=== PATIENT | male | born 1950 | race Caucasian/White ===

== ENCOUNTER 2021-12-03 15:12 | Emergency (ER) | payer OTHER ==
[2021-12-03 15:57] LABS: #Basophils 0.1 thou/uL (0.0-0.2); #Lymphocytes 0.2 thou/uL (1.20-3.40); #Monocytes 0.3 thou/uL (0.11-0.59); #Neutrophils 8.9 thou/uL (1.40-6.50); %Basophils 0.9 % (0.0-1.0); %Eosinophils 0.5 % (0.0-10.0); %Lymphocytes 2.1 % (21.0-51.0); %Monocytes 3.6 % (0.0-10.0); %Neutrophils 92.9 % (42.0-75.0); Mean Corpuscular HGB CONC 33.3 g/dL (32.0-36.0); Mean Corpuscular Hemoglobin 32.8 pg (27.0-31.0); Mean Corpuscular Volume 98.6 fL (78.0-98.0); Mean Platelet Volume 6.5 fL (7.4-10.4); Platelet Count 189 thou/uL (130-400); RBC Distribution Width 12.8 % (11.5-14.5); Red Blood Cell (RBC) Count 5.17 mill/uL (4.70-6.10); White Blood Cell (WBC) Count 9.6 thou/uL (4.8-10.8)
[2021-12-03] MEDS ORDERED: methylPREDNISolone Sod Succ/PF 125 MG/2 ML VIAL ONE (15:57)
[2021-12-03 16:14] LABS: ALT (SGPT) 21 U/L (8-55); AST (SGOT) 19 U/L (5-34); Albumin 4.6 g/dL (3.4-4.8); Alkaline Phosphatase 91 U/L (40-110); Anion Gap 17 mmol/L (10-20); BUN (Urea Nitrogen) 22 mg/dL (8.4-25.7); Bilirubin, Total 1.1 mg/dL (0.2-1.2); Calc. Creatinine Clearance 0 mL/min (70-130); Calcium 9.7 mg/dL (7.8-10.44); Carbon Dioxide 32 mmol/L (23-31); Chloride 101 mmol/L (98-107); Globulin 3.4 g/dL (2.4-3.5); Glucose 103 mg/dL (80-115); Lipase 18 U/L (8-78); Potassium 3.9 mmol/L (3.5-5.1); Sodium 146 mmol/L (136-145)
== END 2021-12-03 20:12 | disposition home or self-care (01) ==
LOC: BURERS 15:12
DX: J44.1 Chronic obstructive pulmonary disease with (acute) exacerbation (principal); R11.2 Nausea with vomiting, unspecified; R19.7 Diarrhea, unspecified; I10 Essential (primary) hypertension; Z79.899 Other long term (current) drug therapy
CPT/HCPCS: 36415; 71045; 80053; 83605; 83690; 83880; 84484; 85025; 93005; 96374; J2930; J7620

== ENCOUNTER 2021-12-29 21:41 | Emergency (ER) | payer OTHER ==
[2021-12-29] MEDS ORDERED: Benzonatate 100 MG CAP ONE (23:22)
[2021-12-29 23:54] LABS: #Basophils 0.1 thou/uL (0.0-0.2); #Eosinphils 0.1 thou/uL (0.0-0.7); #Lymphocytes 0.4 thou/uL (1.20-3.40); #Monocytes 0.5 thou/uL (0.11-0.59); #Neutrophils 4.6 thou/uL (1.40-6.50); %Basophils 1.4 % (0.0-1.0); %Eosinophils 1.8 % (0.0-10.0); %Lymphocytes 7.6 % (21.0-51.0); %Monocytes 8.5 % (0.0-10.0); %Neutrophils 80.7 % (42.0-75.0); Mean Corpuscular Hemoglobin 32.9 pg (27.0-31.0); Mean Corpuscular Volume 96.8 fL (78.0-98.0); Mean Platelet Volume 6.3 fL (7.4-10.4); Platelet Count 187 thou/uL (130-400); Red Blood Cell (RBC) Count 4.26 mill/uL (4.70-6.10); White Blood Cell (WBC) Count 5.6 thou/uL (4.8-10.8)
[2021-12-29 23:56] LABS: ALT (SGPT) 20 U/L (8-55); AST (SGOT) 15 U/L (5-34); Albumin 3.8 g/dL (3.4-4.8); Alkaline Phosphatase 81 U/L (40-110); Anion Gap 17 mmol/L (10-20); BUN (Urea Nitrogen) 30 mg/dL (8.4-25.7); Bilirubin, Total 0.8 mg/dL (0.2-1.2); Calc. Creatinine Clearance 0 mL/min (70-130); Calcium 9.4 mg/dL (7.8-10.44); Carbon Dioxide 30 mmol/L (23-31); Chloride 101 mmol/L (98-107); Globulin 2.9 g/dL (2.4-3.5); Glucose 100 mg/dL (80-115); Potassium 3.7 mmol/L (3.5-5.1); Protein, Total 6.7 g/dL (5.8-8.1); Sodium 144 mmol/L (136-145)
[2021-12-30] MEDS ORDERED: Azithromycin 250 MG TAB ONE (00:16)
[2021-12-30] MEDS ORDERED: predniSONE 20 MG TAB ONE (00:16)
== END 2021-12-30 00:22 | disposition home or self-care (01) ==
LOC: BURERS 21:41
DX: J44.1 Chronic obstructive pulmonary disease with (acute) exacerbation (principal); I10 Essential (primary) hypertension; Z85.038 Personal history of other malignant neoplasm of large intestine
CPT/HCPCS: 36415; 71046; 80053; 83880; 84484; 85025; 93005; J7512; J7620

== ENCOUNTER 2022-01-11 04:00 | Emergency (ER) | payer OTHER ==
[2022-01-11 04:37] LABS: #Basophils 0.1 thou/uL (0.0-0.2); #Eosinphils 0.2 thou/uL (0.0-0.7); #Lymphocytes 0.6 thou/uL (1.20-3.40); #Monocytes 0.5 thou/uL (0.11-0.59); #Neutrophils 4.9 thou/uL (1.40-6.50); %Basophils 0.8 % (0.0-1.0); %Eosinophils 3.2 % (0.0-10.0); %Lymphocytes 9.5 % (21.0-51.0); %Monocytes 8.4 % (0.0-10.0); %Neutrophils 78.2 % (42.0-75.0); Hemoglobin 14.2 g/dL (14.0-18.0); Mean Corpuscular HGB CONC 34.4 g/dL (32.0-36.0); Mean Corpuscular Hemoglobin 33.2 pg (27.0-31.0); Mean Corpuscular Volume 96.6 fL (78.0-98.0); Mean Platelet Volume 5.8 fL (7.4-10.4); Platelet Count 177 thou/uL (130-400); RBC Distribution Width 12.9 % (11.5-14.5); Red Blood Cell (RBC) Count 4.28 mill/uL (4.70-6.10); White Blood Cell (WBC) Count 6.3 thou/uL (4.8-10.8)
[2022-01-11 04:55] LABS: ALT (SGPT) 26 U/L (8-55); AST (SGOT) 13 U/L (5-34); Acetaminophen Less than 10.0 mcg/mL (10.0-30.0); Albumin 3.5 g/dL (3.4-4.8); Alcohol Less than 10 mg/dL (Less than 10); Alkaline Phosphatase 86 U/L (40-110); Anion Gap 14 mmol/L (10-20); BUN (Urea Nitrogen) 27 mg/dL (8.4-25.7); Bilirubin, Total 0.3 mg/dL (0.2-1.2); Calc. Creatinine Clearance 0 mL/min (70-130); Calcium 8.7 mg/dL (7.8-10.44); Carbon Dioxide 32 mmol/L (23-31); Chloride 106 mmol/L (98-107); Globulin 2.8 g/dL (2.4-3.5); Glucose 163 mg/dL (80-115); Potassium 3.9 mmol/L (3.5-5.1); Protein, Total 6.3 g/dL (5.8-8.1); Salicylate Less than 8.0 mg/dL (15.0-30.0); Sodium 148 mmol/L (136-145)
[2022-01-11 07:17] LABS: Lactic Acid 1.7 mmol/L (0.5-2.2)
== END 2022-01-11 07:00 | disposition home or self-care (01) ==
LOC: BURERS 04:00
DX: J44.1 Chronic obstructive pulmonary disease with (acute) exacerbation (principal); I10 Essential (primary) hypertension; Z79.51 Long term (current) use of inhaled steroids; Z79.899 Other long term (current) drug therapy
CPT/HCPCS: 36415; 71045; 80053; 80307; 83605; 83880; 84484; 85025; 93005; 94760

== ENCOUNTER 2022-01-18 05:01 | Inpatient (IN) | payer OTHER ==
[2022-01-18] MEDS ORDERED: methylPREDNISolone Sod Succ/PF 125 MG/2 ML VIAL ONE (05:39)
[2022-01-18 05:41] LABS: #Basophils 0.1 thou/uL (0.0-0.2); #Eosinphils 0.2 thou/uL (0.0-0.7); #Lymphocytes 0.4 thou/uL (1.20-3.40); #Monocytes 0.5 thou/uL (0.11-0.59); %Basophils 0.8 % (0.0-1.0); %Lymphocytes 5.6 % (21.0-51.0); %Monocytes 6.9 % (0.0-10.0); %Neutrophils 83.8 % (42.0-75.0); Hemoglobin 14.4 g/dL (14.0-18.0); Mean Corpuscular HGB CONC 33.2 g/dL (32.0-36.0); Mean Corpuscular Hemoglobin 32.8 pg (27.0-31.0); Mean Corpuscular Volume 98.7 fL (78.0-98.0); Mean Platelet Volume 7.1 fL (7.4-10.4); Platelet Count 157 thou/uL (130-400); RBC Distribution Width 13.5 % (11.5-14.5); White Blood Cell (WBC) Count 7.1 thou/uL (4.8-10.8)
[2022-01-18] MEDS ORDERED: Sodium Chloride 0.9% 100 ML ONE (05:50)
[2022-01-18] MEDS ORDERED: cefTRIAXone\\ROCEPHIN 2 GM VIAL ONE (05:50)
[2022-01-18 06:00] LABS: ALT (SGPT) 22 U/L (8-55); AST (SGOT) 15 U/L (5-34); Albumin 3.7 g/dL (3.4-4.8); Alkaline Phosphatase 72 U/L (40-110); Anion Gap 15 mmol/L (10-20); BUN (Urea Nitrogen) 20 mg/dL (8.4-25.7); Bilirubin, Total 0.4 mg/dL (0.2-1.2); Calc. Creatinine Clearance 0 mL/min (70-130); Calcium 8.9 mg/dL (7.8-10.44); Carbon Dioxide 28 mmol/L (23-31); Chloride 106 mmol/L (98-107); Globulin 2.8 g/dL (2.4-3.5); Glucose 108 mg/dL (80-115); Potassium 3.9 mmol/L (3.5-5.1); Protein, Total 6.5 g/dL (5.8-8.1); Sodium 145 mmol/L (136-145)
[2022-01-18 06:49] LABS: SARS-CoV-2 NAA Rapid Test Not Detected (NotDetected)
[2022-01-18] MEDS ORDERED: Azithromycin 250 MG TAB ONE (07:10)
[2022-01-18] MEDS ORDERED: Benzonatate 100 MG CAP PO PRN (08:04)
[2022-01-18] MEDS ORDERED: Ondansetron PF 4 MG/2 ML Vial IVP PRN (08:27)
[2022-01-18] MEDS ORDERED: Ondansetron ODT 4 MG TAB PO PRN (08:28)
[2022-01-18] MEDS ORDERED: Acetaminophen 325 MG TAB PO PRN (08:28)
[2022-01-18] MEDS ORDERED: methylPREDNISolone 4 mg Tablet PO SCH (09:00)
[2022-01-18] MEDS ORDERED: Non-Formulary Item 1 EACH (Losartan Potassium [Cozaar] 100 MG Tablet) PO SCH (09:00)
[2022-01-18 11:02] VITALS: BMI 19.8
[2022-01-18] MEDS: Albuterol Sulfate 2.5 mg/3 ml Neb NEB PRN ×2 (12:26→20:11)
[2022-01-18] MEDS: Dextrose 5 %-0.45 % NaCl 1,000 ML IV SCH ×3 (12:26→20:19)
[2022-01-18] MEDS: Losartan 25 MG TAB PO SCH (12:28)
[2022-01-18] MEDS: Amlodipine 5 MG TAB PO SCH (12:29)
[2022-01-18] MEDS: Ferrous Sulfate 325 MG TAB PO SCH ×2 (12:30→20:12)
[2022-01-18] MEDS: methylPREDNISolone Sod Succ 40 MG VIAL IVP SCH ×2 (14:42→22:11)
[2022-01-18] MEDS: Mometasone/Formoterol 200/5 60 PUFF INH SCH (18:52)
[2022-01-18] MEDS: Enoxaparin Sodium 40 MG/0.4 ML SYRINGE SC SCH (20:12)
[2022-01-18] MEDS: Mirtazapine 15 MG TAB PO SCH (20:13)
[2022-01-18] MEDS ORDERED: MIRTAZAPINE 15 MG PO SCH (21:00)
[2022-01-19] MEDS: Albuterol Sulfate 2.5 mg/3 ml Neb NEB PRN (03:29)
[2022-01-19] MEDS: Dextrose 5 %-0.45 % NaCl 1,000 ML IV SCH (04:49)
[2022-01-19] MEDS ORDERED: cefTRIAXone\\ROCEPHIN 1 GM VIAL ONE (05:40)
[2022-01-19] MEDS ORDERED: cefTRIAXone\\ROCEPHIN 1 GM in Sodium Chloride 0.9% 100 ML IVPB SCH (06:00)
[2022-01-19] MEDS: methylPREDNISolone Sod Succ 40 MG VIAL IVP SCH ×3 (06:04→21:28)
[2022-01-19] MEDS: Losartan 25 MG TAB PO SCH (08:49)
[2022-01-19] MEDS: Ferrous Sulfate 325 MG TAB PO SCH ×2 (08:49→21:29)
[2022-01-19] MEDS: Amlodipine 5 MG TAB PO SCH (08:49)
[2022-01-19] MEDS: Mometasone/Formoterol 200/5 60 PUFF INH SCH ×2 (08:54→18:16)
[2022-01-19] MEDS ORDERED: Azithromycin 250 MG TAB PO SCH (09:00)
[2022-01-19] MEDS: Mirtazapine 15 MG TAB PO SCH (21:29)
[2022-01-19] MEDS: Enoxaparin Sodium 40 MG/0.4 ML SYRINGE SC SCH (21:29)
[2022-01-20 06:27] VITALS: TEMP 98.2
[2022-01-20] MEDS: methylPREDNISolone Sod Succ 40 MG VIAL IVP SCH ×2 (06:33→15:13)
[2022-01-20] MEDS: Mometasone/Formoterol 200/5 60 PUFF INH SCH (06:34)
[2022-01-20] MEDS ORDERED: Losartan Potassium 50 MG TAB PO SCH (09:00)
[2022-01-20] MEDS: Ferrous Sulfate 325 MG TAB PO SCH (09:32)
[2022-01-20] MEDS: Amlodipine 5 MG TAB PO SCH (09:32)
[2022-01-20 09:39] VITALS: BP 177/84
[2022-01-20] MEDS ORDERED: Losartan 25 MG TAB PO SCH (09:45)
[2022-01-21] MEDS ORDERED: Losartan 25 MG TAB PO SCH (09:00)
== END 2022-01-20 14:45 | disposition home or self-care (01) | DRG 192 ==
LOC: BURERS 05:01 → BURMED 07:22
PROVIDERS: ADMIT Family Medicine; ATTEND Family Medicine
DX: J44.1 Chronic obstructive pulmonary disease with (acute) exacerbation (principal); R53.1 Weakness; R53.81 Other malaise; I10 Essential (primary) hypertension; Z20.822 Contact with and (suspected) exposure to COVID-19; F41.0 Panic disorder [episodic paroxysmal anxiety]; Z99.81 Dependence on supplemental oxygen; Z85.038 Personal history of other malignant neoplasm of large intestine; Z92.3 Personal history of irradiation; Z90.49 Acquired absence of other specified parts of digestive tract; Z79.899 Other long term (current) drug therapy; Z92.21 Personal history of antineoplastic chemotherapy; Z63.8 Other specified problems related to primary support group
CPT/HCPCS: 36415; 71045; 80053; 83880; 84484; 85025; 93005; 94640; 94760; 96374; 96375; J0696; J2920; J2930; J3490; J7042; J7611; J7620

== ENCOUNTER 2022-02-10 14:34 | Emergency (ER) | payer OTHER ==
[2022-02-10] MEDS ORDERED: Albuterol Sulfate 1.25 MG/3 ML NEB ONE (14:48)
[2022-02-10] MEDS ORDERED: predniSONE 20 MG TAB ONE (15:02)
== END 2022-02-10 16:28 | disposition home or self-care (01) ==
LOC: BURERS 14:34
DX: J44.1 Chronic obstructive pulmonary disease with (acute) exacerbation (principal); I10 Essential (primary) hypertension; Z85.038 Personal history of other malignant neoplasm of large intestine; Z79.899 Other long term (current) drug therapy
CPT/HCPCS: 94640; J7512; J7620

== ENCOUNTER 2022-03-01 01:05 | Emergency (ER) | payer OTHER ==
[2022-03-01] MEDS ORDERED: traMADol HCl 50 MG TAB ONE (02:24)
== END 2022-03-01 02:57 | disposition home or self-care (01) ==
LOC: BURERS 01:05
DX: S16.1XXA Strain of muscle, fascia and tendon at neck level, initial encounter (principal); I10 Essential (primary) hypertension; W19.XXXA Unspecified fall, initial encounter
CPT/HCPCS: 70450; 72125

== ENCOUNTER 2022-03-18 02:58 | Emergency (ER) | payer OTHER | END 2022-03-18 05:23 | disposition home or self-care (01) | LOC: BURERS 02:58 | DX: K56.41 Fecal impaction (principal); I10 Essential (primary) hypertension; J44.9 Chronic obstructive pulmonary disease, unspecified; E78.5 Hyperlipidemia, unspecified | CPT/HCPCS: 99283 ==

== ENCOUNTER 2022-04-01 06:41 | Emergency (ER) | payer OTHER ==
[2022-04-01] MEDS ORDERED: Acetaminophen/Codeine 30-300mg Tablet ONE (07:30)
[2022-04-01] MEDS ORDERED: Bacitracin 1 PK ONE (07:36)
== END 2022-04-01 08:04 | disposition home or self-care (01) ==
LOC: BURERS 06:41
DX: S51.811A Laceration without foreign body of right forearm, initial encounter (principal); S81.812A Laceration without foreign body, left lower leg, initial encounter; S70.01XA Contusion of right hip, initial encounter; I10 Essential (primary) hypertension; J44.9 Chronic obstructive pulmonary disease, unspecified; E78.5 Hyperlipidemia, unspecified; Z87.891 Personal history of nicotine dependence; Z79.899 Other long term (current) drug therapy; W01.0XXA Fall on same level from slipping, tripping and stumbling without subsequent striking against object, initial encounter

== ENCOUNTER 2022-08-05 20:48 | Emergency (ER) | payer OTHER ==
[~2022-08-05 20:48] MED LIST: Iopamidol 370 76% 100 ML VIAL ONE
[2022-08-05] MEDS ORDERED: Lorazepam 2 MG/ML VIAL ONE (21:07)
[2022-08-05] MEDS ORDERED: methylPREDNISolone Sod Succ/PF 125 MG/2 ML VIAL ONE (21:07)
[2022-08-05 21:24] LABS: #Basophils 0.1 thou/uL (0.0-0.2); #Eosinphils 0.1 thou/uL (0.0-0.7); #Lymphocytes 0.5 thou/uL (1.20-3.40); #Monocytes 0.6 thou/uL (0.11-0.59); #Neutrophils 6.3 thou/uL (1.40-6.50); %Eosinophils 1.2 % (0.0-10.0); %Lymphocytes 6.3 % (21.0-51.0); %Monocytes 7.5 % (0.0-10.0); Hemoglobin 12.9 g/dL (14.0-18.0); Mean Corpuscular HGB CONC 32.9 g/dL (32.0-36.0); Mean Corpuscular Hemoglobin 31.5 pg (27.0-31.0); Mean Corpuscular Volume 95.5 fl (78.0-98.0); Mean Platelet Volume 6.3 fL (7.4-10.4); Platelet Count 220 10x3/uL (130-400); RBC Distribution Width 13.9 % (11.5-14.5); Red Blood Cell (RBC) Count 4.09 mill/uL (4.70-6.10); White Blood Cell (WBC) Count 7.5 10x3/uL (4.8-10.8)
[2022-08-05 21:36] LABS: Base Excess-Venous 4.3 mmol/L (-2.0 to 3.0); Bicarbonate (HCO3v) 32.1 mmol/L (22.0-28.0); CO2 Tension (PvCO2) 60.5 mmHg (42.0-51.0); Calcium, Ionized 1.22 mmol/L (1.15-1.33); Chloride 105 mmol/L (98-107); Hemoglobin - Calc 14.2 g/dL (14.0-18.0); Potassium 3.9 mmol/L (3.5-5.1); Sodium 147 mmol/L (138-145); T. Carbon Dioxide 33.9 mmol/L (22.0-28.0); vO2 Saturation-calc 58.1 % (60.0-85.0)
[2022-08-05 21:46] LABS: ALT (SGPT) 29 U/L (8-55); AST (SGOT) 18 U/L (5-34); Albumin 4.4 g/dL (3.4-4.8); Alkaline Phosphatase 81 U/L (40-110); Anion Gap 16 mmol/L (10-20); BUN (Urea Nitrogen) 22 mg/dL (8.4-25.7); Bilirubin, Total 0.5 mg/dL (0.2-1.2); Calc. Creatinine Clearance 0 mL/min (70-130); Calcium 9.8 mg/dL (7.8-10.44); Carbon Dioxide 30 mmol/L (23-31); Chloride 103 mmol/L (98-107); Estimated GFR 92; Globulin 3.1 g/dL (2.4-3.5); Glucose 143 mg/dL (83-110); Potassium 3.9 mmol/L (3.5-5.1); Protein, Total 7.5 g/dL (5.8-8.1); Sodium 145 mmol/L (136-145)
[2022-08-05 23:04] LABS: Bilirubin Negative (Negative); Blood, Urine Trace (Negative); Clarity Clear (Clear); Glucose, Urine (Dipstick) Negative (Negative); Ketone, Urine Negative (Negative); Leukocyte Negative (Negative); Nitrite Negative (Negative); Protein, Urine (Dipstick) Negative (Neg-Trace); Urobilinogen 0.2 mg/dL (Less than 2); pH, Urine 6.5 (5.0-9.0)
[2022-08-05 23:05] LABS: Bacteria/HPF Rare-Few HPF (None Seen); Mucous/LPF Rare LPF (<2+); RBC/HPF 0-3 HPF (0-3); Squamous Epithelial None Seen HPF (0-3); WBC/HPF None Seen HPF (0-3)
[2022-08-05 23:12] LABS: Cocaine Metabolite Screen Detected (NotDetected); Phencyclidine (PCP) Not Detected (NotDetected); THC/Cannabinoid Screen Not Detected (NotDetected)
[2022-08-05 23:13] LABS: Amphetamine Not Detected (NotDetected); Barbiturates Screen Not Detected (NotDetected); Benzodiazepine Screen Not Detected (NotDetected); Medtox Control Line Valid? VALID (VALID); Methadone Not Detected (NotDetected); Methamphetamine Not Detected (NotDetected); Opiate Screen Not Detected (NotDetected); Oxycodone Screen Not Detected (NotDetected); Tricyclic Screen Not Detected (NotDetected)
[2022-08-06 00:10] LABS: Base Excess-Venous 3.1 mmol/L (-2.0 to 3.0); Bicarbonate (HCO3v) 30.2 mmol/L (22.0-28.0); CO2 Tension (PvCO2) 56.1 mmHg (42.0-51.0); Calcium, Ionized 1.16 mmol/L (1.15-1.33); Chloride 106 mmol/L (98-107); Hemoglobin - Calc 12.6 g/dL (14.0-18.0); Sodium 144 mmol/L (138-145); T. Carbon Dioxide 31.9 mmol/L (22.0-28.0); vO2 Saturation-calc 73.3 % (60.0-85.0)
[2022-08-06] MEDS ORDERED: Azithromycin 250 MG TAB ONE (00:52)
== END 2022-08-06 00:56 | disposition home or self-care (01) ==
LOC: BURERS 20:48
DX: J44.1 Chronic obstructive pulmonary disease with (acute) exacerbation (principal); I10 Essential (primary) hypertension; E78.5 Hyperlipidemia, unspecified; Z87.891 Personal history of nicotine dependence
CPT/HCPCS: 36415; 71045; 71275; 80053; 80306; 81003; 81015; 82330; 82803; 83605; 83880; 84484; 85014; 85025; 85379; 93005; 96374; 96375; J2060; J2930; J7620; Q9967

== ENCOUNTER 2022-08-27 16:00 | Emergency (ER) | payer OTHER ==
[2022-08-27 16:37] LABS: Bilirubin Negative (Negative); Blood, Urine Negative (Negative); Clarity Clear (Clear); Glucose, Urine (Dipstick) Negative (Negative); Ketone, Urine Negative (Negative); Leukocyte Negative (Negative); Nitrite Negative (Negative); Protein, Urine (Dipstick) Negative (Neg-Trace); Specific Gravity, Urine 1.025 (1.005-1.030); Urobilinogen 0.2 mg/dL (Less than 2)
[2022-08-27 16:37] LABS: #Basophils 0.1 thou/uL (0.0-0.2); #Eosinphils 0.1 thou/uL (0.0-0.7); #Lymphocytes 0.4 thou/uL (1.20-3.40); #Monocytes 0.6 thou/uL (0.11-0.59); #Neutrophils 6.2 thou/uL (1.40-6.50); %Basophils 1.1 % (0.0-1.0); %Eosinophils 1.3 % (0.0-10.0); %Lymphocytes 4.8 % (21.0-51.0); %Neutrophils 84.8 % (42.0-75.0); Hemoglobin 11.7 g/dL (14.0-18.0); Mean Corpuscular Hemoglobin 32.1 pg (27.0-31.0); Mean Corpuscular Volume 94.3 fl (78.0-98.0); Mean Platelet Volume 5.8 fL (7.4-10.4); Platelet Count 203 10x3/uL (130-400); RBC Distribution Width 14.2 % (11.5-14.5); Red Blood Cell (RBC) Count 3.66 mill/uL (4.70-6.10); White Blood Cell (WBC) Count 7.3 10x3/uL (4.8-10.8)
[2022-08-27 16:54] LABS: ALT (SGPT) 19 U/L (8-55); AST (SGOT) 16 U/L (5-34); Albumin 4.1 g/dL (3.4-4.8); Alkaline Phosphatase 71 U/L (40-110); Anion Gap 15 mmol/L (10-20); BUN (Urea Nitrogen) 18 mg/dL (8.4-25.7); Bilirubin, Total 0.7 mg/dL (0.2-1.2); Calc. Creatinine Clearance 0 mL/min (70-130); Calcium 9.1 mg/dL (7.8-10.44); Carbon Dioxide 25 mmol/L (23-31); Chloride 107 mmol/L (98-107); Estimated GFR 80; Globulin 2.6 g/dL (2.4-3.5); Glucose 114 mg/dL (83-110); Potassium 3.3 mmol/L (3.5-5.1); Protein, Total 6.7 g/dL (5.8-8.1); Sodium 144 mmol/L (136-145)
[2022-08-27] MEDS ORDERED: Morphine 2 MG/ML VIAL ONE (17:46)
[2022-08-27] MEDS ORDERED: Ketorolac Tromethamine 30 MG/ML VIAL ONE (17:57)
== END 2022-08-27 21:39 | disposition home or self-care (01) ==
LOC: BURERS 16:00
DX: R07.89 Other chest pain (principal); I10 Essential (primary) hypertension; J44.9 Chronic obstructive pulmonary disease, unspecified; E78.5 Hyperlipidemia, unspecified; Z87.891 Personal history of nicotine dependence
CPT/HCPCS: 36415; 71250; 74177; 80053; 81003; 83605; 83690; 84484; 85025; 93005; 96374; 96375; J1885; J2270; J7620

== ENCOUNTER 2022-08-29 20:33 | Emergency (ER) | payer OTHER, MEDICARE ==
[2022-08-29] MEDS ORDERED: Doxycycline 100 MG CAP ONE (20:49)
== END 2022-08-29 23:30 | disposition home or self-care (01) ==
LOC: BURERS 20:33
DX: J44.1 Chronic obstructive pulmonary disease with (acute) exacerbation (principal); I10 Essential (primary) hypertension; E78.5 Hyperlipidemia, unspecified; Z87.891 Personal history of nicotine dependence
CPT/HCPCS: 71250; 74177

== ENCOUNTER 2022-09-20 18:47 | Emergency (ER) | payer OTHER ==
[2022-09-20] MEDS ORDERED: methylPREDNISolone Sod Succ/PF 125 MG/2 ML VIAL ONE (19:07)
[2022-09-20] MEDS ORDERED: Ipratropium/Albuterol 3 ML NEB ONE (19:07)
== END 2022-09-20 20:31 | disposition home or self-care (01) ==
LOC: BURERS 18:47
DX: J44.1 Chronic obstructive pulmonary disease with (acute) exacerbation (principal); I10 Essential (primary) hypertension; E78.5 Hyperlipidemia, unspecified
CPT/HCPCS: 96374; J2930; J7620

== ENCOUNTER 2022-10-07 00:12 | Emergency (ER) | payer OTHER ==
[2022-10-07 00:37] LABS: #Basophils 0.1 thou/uL (0.0-0.2); #Eosinphils 0.1 thou/uL (0.0-0.7); #Lymphocytes 0.5 thou/uL (1.20-3.40); #Monocytes 0.6 thou/uL (0.11-0.59); #Neutrophils 5.5 thou/uL (1.40-6.50); %Basophils 1.9 % (0.0-1.0); %Lymphocytes 6.9 % (21.0-51.0); %Monocytes 8.7 % (0.0-10.0); %Neutrophils 80.5 % (42.0-75.0); Hemoglobin 13.4 g/dL (14.0-18.0); Mean Corpuscular HGB CONC 33.7 g/dL (32.0-36.0); Mean Corpuscular Hemoglobin 32.1 pg (27.0-31.0); Mean Corpuscular Volume 95.2 fl (78.0-98.0); Mean Platelet Volume 6.7 fL (7.4-10.4); Platelet Count 204 10x3/uL (130-400); RBC Distribution Width 13.8 % (11.5-14.5); Red Blood Cell (RBC) Count 4.17 mill/uL (4.70-6.10); White Blood Cell (WBC) Count 6.8 10x3/uL (4.8-10.8)
[2022-10-07 00:52] LABS: ALT (SGPT) 16 U/L (8-55); AST (SGOT) 13 U/L (5-34); Albumin 3.9 g/dL (3.4-4.8); Alkaline Phosphatase 95 U/L (40-110); Anion Gap 17 mmol/L (10-20); BUN (Urea Nitrogen) 14 mg/dL (8.4-25.7); Bilirubin, Total 0.3 mg/dL (0.2-1.2); Calc. Creatinine Clearance 0 mL/min (70-130); Calcium 8.9 mg/dL (7.8-10.44); Carbon Dioxide 25 mmol/L (23-31); Chloride 107 mmol/L (98-107); Estimated GFR 74; Globulin 2.3 g/dL (2.4-3.5); Glucose 157 mg/dL (83-110); Potassium 3.2 mmol/L (3.5-5.1); Protein, Total 6.2 g/dL (5.8-8.1); Sodium 146 mmol/L (136-145)
== END 2022-10-07 00:56 | disposition home or self-care (01) ==
LOC: BURERS 00:12
DX: J44.9 Chronic obstructive pulmonary disease, unspecified (principal); F41.9 Anxiety disorder, unspecified; I10 Essential (primary) hypertension; E78.00 Pure hypercholesterolemia, unspecified; Z85.038 Personal history of other malignant neoplasm of large intestine; Z87.891 Personal history of nicotine dependence
CPT/HCPCS: 71045; 80053; 85025

== ENCOUNTER 2022-10-17 11:42 | Inpatient (IN) | payer MEDICARE ==
[2022-10-17] MEDS ORDERED: traMADol HCl 50 MG TAB PO PRN (17:40)
[2022-10-17] MEDS ORDERED: IPRATROPIUM INH PRN (17:40)
[2022-10-17] MEDS ORDERED: Albuterol 200 PUFF (6.7GM INHALER) INH PRN (17:40)
[2022-10-17] MEDS ORDERED: Bisacodyl 10 MG SUPP PR PRN (17:42)
[2022-10-17] MEDS ORDERED: Bisacodyl 5 MG TAB PO PRN (17:42)
[2022-10-17] MEDS ORDERED: SPACER MC SCH (17:45)
[2022-10-17] MEDS ORDERED: Ipratropium/Albuterol 3 ML NEB NEB PRN (17:59)
[2022-10-17] MEDS: Ipratropium Bromide 2.5 ml Neb NEB SCH ×2 (18:19→23:41)
[2022-10-17] MEDS: Mometasone/Formoterol 200/5 60 PUFF INH SCH (20:44)
[2022-10-17] MEDS: Acetaminophen 325 MG TAB PO PRN (20:46)
[2022-10-17] MEDS: Lorazepam 0.5 MG TAB PO PRN (20:47)
[2022-10-17] MEDS: Cefdinir 300 MG CAP PO SCH (20:51)
[2022-10-17] MEDS: Ferrous Sulfate 325 MG TAB PO SCH (20:51)
[2022-10-17] MEDS: Mirtazapine 15 MG TAB PO SCH (20:51)
[2022-10-17] MEDS: Sertraline 100 MG TAB PO SCH (20:52)
[2022-10-17] MEDS: Melatonin 3 MG TAB PO PRN (20:52)
[2022-10-18] MEDS: Ipratropium Bromide 2.5 ml Neb NEB SCH ×3 (05:27→18:53)
[2022-10-18] MEDS: predniSONE 20 MG TAB PO SCH (09:12)
[2022-10-18] MEDS: Cefdinir 300 MG CAP PO SCH ×2 (09:12→20:17)
[2022-10-18] MEDS: Losartan Potassium 50 MG TAB PO SCH (09:12)
[2022-10-18] MEDS: Azithromycin 250 MG TAB PO SCH (09:12)
[2022-10-18] MEDS: Amlodipine 5 MG TAB PO SCH (09:13)
[2022-10-18] MEDS: Ferrous Sulfate 325 MG TAB PO SCH ×2 (09:13→20:18)
[2022-10-18] MEDS: Mometasone/Formoterol 200/5 60 PUFF INH SCH ×2 (09:13→20:16)
[2022-10-18] MEDS ORDERED: Ondansetron ODT 4 MG TAB PO PRN (11:37)
[2022-10-18] MEDS: Sertraline 100 MG TAB PO SCH (20:17)
[2022-10-18] MEDS: Melatonin 3 MG TAB PO PRN (20:17)
[2022-10-18] MEDS: Mirtazapine 15 MG TAB PO SCH (20:17)
[2022-10-18] MEDS: Lorazepam 0.5 MG TAB PO PRN (20:18)
[2022-10-19] MEDS: Ipratropium Bromide 2.5 ml Neb NEB SCH ×4 (00:19→18:45)
[2022-10-19] MEDS: predniSONE 20 MG TAB PO SCH (09:33)
[2022-10-19] MEDS: Ferrous Sulfate 325 MG TAB PO SCH ×2 (09:34→21:43)
[2022-10-19] MEDS: Amlodipine 5 MG TAB PO SCH (09:34)
[2022-10-19] MEDS: Azithromycin 250 MG TAB PO SCH (09:34)
[2022-10-19] MEDS: Losartan Potassium 50 MG TAB PO SCH (09:34)
[2022-10-19] MEDS: Cefdinir 300 MG CAP PO SCH ×2 (09:34→21:41)
[2022-10-19] MEDS: Mometasone/Formoterol 200/5 60 PUFF INH SCH ×2 (09:34→21:45)
[2022-10-19] MEDS: Melatonin 3 MG TAB PO PRN (21:41)
[2022-10-19] MEDS: Mirtazapine 15 MG TAB PO SCH (21:41)
[2022-10-19] MEDS: Lorazepam 0.5 MG TAB PO PRN (21:41)
[2022-10-19] MEDS: Sertraline 100 MG TAB PO SCH (21:44)
[2022-10-20] MEDS: Ipratropium Bromide 2.5 ml Neb NEB SCH ×5 (00:33→23:43)
[2022-10-20] MEDS: Azithromycin 250 MG TAB PO SCH (09:45)
[2022-10-20] MEDS: predniSONE 20 MG TAB PO SCH (09:45)
[2022-10-20] MEDS: Cefdinir 300 MG CAP PO SCH ×2 (09:45→20:17)
[2022-10-20] MEDS: Losartan Potassium 50 MG TAB PO SCH (09:45)
[2022-10-20] MEDS: Amlodipine 5 MG TAB PO SCH (09:45)
[2022-10-20] MEDS: Mometasone/Formoterol 200/5 60 PUFF INH SCH ×2 (09:45→20:21)
[2022-10-20] MEDS: Ferrous Sulfate 325 MG TAB PO SCH ×2 (09:51→20:18)
[2022-10-20] MEDS: Melatonin 3 MG TAB PO PRN (20:17)
[2022-10-20] MEDS: Lorazepam 0.5 MG TAB PO PRN (20:18)
[2022-10-20] MEDS: Mirtazapine 15 MG TAB PO SCH (20:18)
[2022-10-20] MEDS: Sertraline 100 MG TAB PO SCH (20:18)
[2022-10-21] MEDS: Ipratropium Bromide 2.5 ml Neb NEB SCH ×3 (05:33→17:52)
[2022-10-21] MEDS: predniSONE 20 MG TAB PO SCH (09:55)
[2022-10-21] MEDS: Azithromycin 250 MG TAB PO SCH (09:55)
[2022-10-21] MEDS: Cefdinir 300 MG CAP PO SCH ×2 (09:56→20:20)
[2022-10-21] MEDS: Losartan Potassium 50 MG TAB PO SCH (09:56)
[2022-10-21] MEDS: Amlodipine 5 MG TAB PO SCH (09:56)
[2022-10-21] MEDS: Mometasone/Formoterol 200/5 60 PUFF INH SCH ×2 (09:56→20:25)
[2022-10-21] MEDS: Ferrous Sulfate 325 MG TAB PO SCH ×2 (09:56→20:21)
[2022-10-21] MEDS: Sertraline 100 MG TAB PO SCH (20:21)
[2022-10-21] MEDS: Mirtazapine 15 MG TAB PO SCH (20:21)
[2022-10-21] MEDS: Melatonin 3 MG TAB PO PRN (20:21)
[2022-10-22] MEDS: Ipratropium Bromide 2.5 ml Neb NEB SCH ×4 (00:10→17:33)
[2022-10-22] MEDS: Losartan Potassium 50 MG TAB PO SCH (09:10)
[2022-10-22] MEDS: Amlodipine 5 MG TAB PO SCH (09:10)
[2022-10-22] MEDS: predniSONE 20 MG TAB PO SCH (09:10)
[2022-10-22] MEDS: Azithromycin 250 MG TAB PO SCH (09:10)
[2022-10-22] MEDS: Mometasone/Formoterol 200/5 60 PUFF INH SCH ×2 (09:10→21:00)
[2022-10-22] MEDS: Cefdinir 300 MG CAP PO SCH ×2 (09:10→20:56)
[2022-10-22] MEDS: Ferrous Sulfate 325 MG TAB PO SCH ×2 (09:26→20:57)
[2022-10-22] MEDS: Mirtazapine 15 MG TAB PO SCH (20:56)
[2022-10-22] MEDS: Sertraline 100 MG TAB PO SCH (20:56)
[2022-10-22] MEDS: Melatonin 3 MG TAB PO PRN (20:57)
[2022-10-23] MEDS: Ipratropium Bromide 2.5 ml Neb NEB SCH ×4 (00:35→18:04)
[2022-10-23] MEDS: Mometasone/Formoterol 200/5 60 PUFF INH SCH ×2 (09:12→20:24)
[2022-10-23] MEDS: Azithromycin 250 MG TAB PO SCH (09:15)
[2022-10-23] MEDS: Losartan Potassium 50 MG TAB PO SCH (09:15)
[2022-10-23] MEDS: predniSONE 20 MG TAB PO SCH (09:16)
[2022-10-23] MEDS: Cefdinir 300 MG CAP PO SCH ×2 (09:16→20:25)
[2022-10-23] MEDS: Amlodipine 5 MG TAB PO SCH (09:16)
[2022-10-23] MEDS: Ferrous Sulfate 325 MG TAB PO SCH ×3 (09:18→21:14)
[2022-10-23 10:07] VITALS: BMI 13.4
[2022-10-23] MEDS: Lorazepam 0.5 MG TAB PO PRN (14:44)
[2022-10-23] MEDS: Mirtazapine 15 MG TAB PO SCH (20:25)
[2022-10-23] MEDS: Melatonin 3 MG TAB PO PRN (20:25)
[2022-10-23] MEDS: Sertraline 100 MG TAB PO SCH (20:25)
[2022-10-24] MEDS: Ipratropium Bromide 2.5 ml Neb NEB SCH ×4 (00:35→18:05)
[2022-10-24] MEDS: Ferrous Sulfate 325 MG TAB PO SCH ×2 (09:23→21:11)
[2022-10-24] MEDS: Losartan Potassium 50 MG TAB PO SCH (09:23)
[2022-10-24] MEDS: predniSONE 20 MG TAB PO SCH (09:23)
[2022-10-24] MEDS: Mometasone/Formoterol 200/5 60 PUFF INH SCH ×2 (09:24→21:10)
[2022-10-24] MEDS: Amlodipine 5 MG TAB PO SCH (09:24)
[2022-10-24] MEDS: Cefdinir 300 MG CAP PO SCH ×2 (09:24→21:09)
[2022-10-24] MEDS: Azithromycin 250 MG TAB PO SCH (09:24)
[2022-10-24] MEDS: Mirtazapine 15 MG TAB PO SCH (21:09)
[2022-10-24] MEDS: Sertraline 100 MG TAB PO SCH (21:10)
[2022-10-25] MEDS: Ipratropium Bromide 2.5 ml Neb NEB SCH ×4 (01:15→18:35)
[2022-10-25] MEDS: Mometasone/Formoterol 200/5 60 PUFF INH SCH ×2 (08:31→20:34)
[2022-10-25] MEDS: Losartan Potassium 50 MG TAB PO SCH (08:35)
[2022-10-25] MEDS: Amlodipine 5 MG TAB PO SCH (08:35)
[2022-10-25] MEDS: predniSONE 5 MG TAB PO SCH (08:35)
[2022-10-25] MEDS: Ferrous Sulfate 325 MG TAB PO SCH ×2 (08:37→20:34)
[2022-10-25] MEDS: Mirtazapine 15 MG TAB PO SCH (20:32)
[2022-10-25] MEDS: Sertraline 100 MG TAB PO SCH (20:32)
[2022-10-25] MEDS: Melatonin 3 MG TAB PO PRN (22:23)
[2022-10-26] MEDS: Ipratropium Bromide 2.5 ml Neb NEB SCH ×4 (00:06→16:45)
[2022-10-26] MEDS: Acetaminophen 325 MG TAB PO PRN (03:44)
[2022-10-26] MEDS: Mometasone/Formoterol 200/5 60 PUFF INH SCH ×2 (09:08→20:58)
[2022-10-26] MEDS: Amlodipine 5 MG TAB PO SCH (09:10)
[2022-10-26] MEDS: predniSONE 5 MG TAB PO SCH (09:10)
[2022-10-26] MEDS: Losartan Potassium 50 MG TAB PO SCH (09:10)
[2022-10-26] MEDS: Ferrous Sulfate 325 MG TAB PO SCH ×2 (09:11→21:02)
[2022-10-26] MEDS: Mirtazapine 15 MG TAB PO SCH (20:58)
[2022-10-26] MEDS: Sertraline 100 MG TAB PO SCH (20:58)
[2022-10-26] MEDS: Melatonin 3 MG TAB PO PRN (22:39)
[2022-10-27] MEDS: Ipratropium Bromide 2.5 ml Neb NEB SCH ×4 (00:08→18:38)
[2022-10-27] MEDS: predniSONE 5 MG TAB PO SCH (09:07)
[2022-10-27] MEDS: Losartan Potassium 50 MG TAB PO SCH (09:07)
[2022-10-27] MEDS: Amlodipine 5 MG TAB PO SCH (09:08)
[2022-10-27] MEDS: Mometasone/Formoterol 200/5 60 PUFF INH SCH ×2 (09:08→21:37)
[2022-10-27] MEDS: Ferrous Sulfate 325 MG TAB PO SCH ×2 (09:08→21:36)
[2022-10-27] MEDS: Mirtazapine 15 MG TAB PO SCH (21:35)
[2022-10-27] MEDS: Sertraline 100 MG TAB PO SCH (21:35)
[2022-10-27] MEDS: Melatonin 3 MG TAB PO PRN (22:38)
[2022-10-28] MEDS: Ipratropium Bromide 2.5 ml Neb NEB SCH ×4 (00:08→17:35)
[2022-10-28] MEDS: Amlodipine 5 MG TAB PO SCH (09:26)
[2022-10-28] MEDS: Losartan Potassium 50 MG TAB PO SCH (09:27)
[2022-10-28] MEDS: predniSONE 5 MG TAB PO SCH (09:28)
[2022-10-28] MEDS: Mometasone/Formoterol 200/5 60 PUFF INH SCH (09:28)
[2022-10-28] MEDS: Ferrous Sulfate 325 MG TAB PO SCH (09:29)
[2022-10-28 17:33] VITALS: BP 125/60; TEMP 98.4
== END 2022-10-28 18:41 | disposition home health service (06) | DRG 191 ==
LOC: BURMED 14:10
PROVIDERS: ADMIT Family Medicine; ATTEND Family Medicine
DX: J44.1 Chronic obstructive pulmonary disease with (acute) exacerbation (principal); J96.12 Chronic respiratory failure with hypercapnia; R64 Cachexia; R53.1 Weakness; I10 Essential (primary) hypertension; F41.1 Generalized anxiety disorder; E78.5 Hyperlipidemia, unspecified; G89.29 Other chronic pain; F43.10 Post-traumatic stress disorder, unspecified; Z90.49 Acquired absence of other specified parts of digestive tract; Z85.038 Personal history of other malignant neoplasm of large intestine; Z87.891 Personal history of nicotine dependence
CPT/HCPCS: 87811; J7512; Q0162

== ENCOUNTER 2022-11-01 01:50 | Emergency (ER) | payer OTHER | END 2022-11-01 03:08 | disposition home or self-care (01) | LOC: BURERS 01:50 | DX: F10.10 Alcohol abuse, uncomplicated (principal); F14.10 Cocaine abuse, uncomplicated; I10 Essential (primary) hypertension; J44.9 Chronic obstructive pulmonary disease, unspecified; E78.5 Hyperlipidemia, unspecified | CPT/HCPCS: 71045; 93005 ==

== ENCOUNTER 2022-11-23 10:25 | Emergency (ER) | payer MEDICARE ==
[2022-11-23 10:53] LABS: #Basophils 0.1 thou/uL (0.0-0.2); #Eosinphils 0.1 thou/uL (0.0-0.7); #Lymphocytes 0.5 thou/uL (1.20-3.40); #Monocytes 0.4 thou/uL (0.11-0.59); #Neutrophils 4.9 thou/uL (1.40-6.50); %Basophils 1.3 % (0.0-1.0); %Eosinophils 1.4 % (0.0-10.0); %Lymphocytes 8.6 % (21.0-51.0); %Monocytes 6.3 % (0.0-10.0); %Neutrophils 82.5 % (42.0-75.0); Hemoglobin 13.1 g/dL (14.0-18.0); Mean Corpuscular HGB CONC 32.2 g/dL (32.0-36.0); Mean Corpuscular Hemoglobin 30.5 pg (27.0-31.0); Mean Corpuscular Volume 94.9 fl (78.0-98.0); Mean Platelet Volume 5.3 fL (7.4-10.4); Platelet Count 180 10x3/uL (130-400); RBC Distribution Width 14.1 % (11.5-14.5); Red Blood Cell (RBC) Count 4.29 mill/uL (4.70-6.10)
[2022-11-23 11:11] LABS: ALT (SGPT) 22 U/L (8-55); AST (SGOT) 17 U/L (5-34); Alkaline Phosphatase 99 U/L (40-110); Anion Gap 12 mmol/L (10-20); BUN (Urea Nitrogen) 13 mg/dL (8.4-25.7); Bilirubin, Total 0.6 mg/dL (0.2-1.2); Calc. Creatinine Clearance 0 mL/min (70-130); Calcium 9.8 mg/dL (7.8-10.44); Carbon Dioxide 33 mmol/L (23-31); Chloride 103 mmol/L (98-107); Estimated GFR 92; Globulin 3.1 g/dL (2.4-3.5); Glucose 96 mg/dL (83-110); Lipase 20 U/L (8-78); Magnesium 1.9 mg/dL (1.6-2.6); Potassium 3.7 mmol/L (3.5-5.1); Protein, Total 7.1 g/dL (5.8-8.1); Sodium 144 mmol/L (136-145)
[2022-11-23 11:13] LABS: Troponin I 0.017 ng/mL (< 0.028)
[2022-11-23] MEDS ORDERED: methylPREDNISolone Sod Succ/PF 125 MG/2 ML VIAL ONE (11:15)
[2022-11-23] MEDS ORDERED: Ipratropium/Albuterol 3 ML NEB ONE (11:15)
[2022-11-23] MEDS ORDERED: Loperamide HCl 2 MG CAP PO SCH (11:30)
[2022-11-23] MEDS ORDERED: Ondansetron PF 4 MG/2 ML Vial ONE (13:35)
[2022-11-23] MEDS ORDERED: hydrALAZINE 20 MG/ML VIAL ONE (13:35)
== END 2022-11-23 16:16 | disposition home or self-care (01) ==
LOC: BURERS 10:25
DX: E86.0 Dehydration (principal); J44.9 Chronic obstructive pulmonary disease, unspecified; E46 Unspecified protein-calorie malnutrition; I10 Essential (primary) hypertension; E78.5 Hyperlipidemia, unspecified; Z79.899 Other long term (current) drug therapy
CPT/HCPCS: 71045; 74177; 80053; 83605; 83690; 83735; 84484 ×2; 85025; 93005; 96361; 96374; 99284; J0360; 36415; J2405; J2930; J7620